=== PATIENT | female | born 1995 | race Caucasian/White ===

== ENCOUNTER 2025-02-06 17:14 | Emergency (ER) | payer OTHER ==
[~2025-02-06] VITALS: Ht 165.1 cm; Wt 59.0 kg
[2025-02-06 17:14] VITALS: BP 140/85; PULSE 91; RESP 18; TEMP 98.5; O2SAT 95
[2025-02-06 17:48] LABS: BASOPHIL # 0.1 10^3/uL (0.0-0.1); BASOPHIL % 0.5 % (0.1-1.2); EOSINOPHIL # 0.2 10^3/uL (0.0-0.2); EOSINOPHIL % 1.4 % (0.0-5.0); HEMATOCRIT(ML) 42.1 % (36.0-46.0); IG % 0.20 % (0.00-0.50); LYMPHOCYTES # 3.03 10^3/uL1 (1.0-4.8); LYMPHOCYTES % 24.2 % (24.0-44.0); MEAN CORP HGB 27.9 pg (26-34); MEAN CORP HGB CONCENTRATION 32.3 g/dL (33-36.5); MEAN CORP VOLUME 86.4 fL (78-100); MONOCYTES # 1.0 10^3/uL (0.3-0.8); MONOCYTES % 7.8 % (5.0-12.0); NEUTROPHIL # 8.2 10^3/uL (1.8-7.7); NEUTROPHILS % 65.9 % (41.0-85.0); RED BLOOD CELL 4.87 10^6/uL (4.00-5.20); RED CELL DISTRIBUTION WIDTH 12.5 % (11.5-14.5); WHITE BLOOD CELL 12.5 10^3/uL (4.5-11.0)
[2025-02-06 18:14] LABS: ALBUMIN(ML) 4.5 g/dL (3.4-5.0); CREATININE SERUM 0.89 mg/dL (0.59-1.40); EST GFR, NON-AA 76.1 (>/=60)
[2025-02-06 18:15] LABS: ALANINE AMINOTRANSFERASE(ML) 22 U/L (12-78); TROPONIN I HIGH SENSITIVITY < 4 ng/L (0-50)
[2025-02-06 18:27] VITALS: BP 140/87; PULSE 84; RESP 18; O2SAT 98
[2025-02-06 20:01] VITALS: BP 120/60; PULSE 91; RESP 18; TEMP 98.5; O2SAT 95
[2025-02-06 20:03] LABS: LEUKOCYTE ESTERASE ,URINE NEGATIVE (NEGATIVE); NITRATE,URINE NEGATIVE (NEGATIVE)
[2025-02-06 20:07] LABS: APPEARANCE,URINE CLEAR; UA COLOR YELLOW
== END 2025-02-06 20:05 | disposition home or self-care (01) ==
LOC: ER 17:14
DX: S20.219A Contusion of unspecified front wall of thorax, initial encounter (principal); R04.0 Epistaxis; V43.52XA Car driver injured in collision with other type car in traffic accident, initial encounter; Y93.89 Activity, other specified; Y92.488 Other paved roadways as the place of occurrence of the external cause; Y99.8 Other external cause status
CPT/HCPCS: 99291; 70486; 70450; 71275; 74018; 80053; 85025; 36415; 84484; 83605; 81001; 83880; 93005; Q9967; Q9965